=== PATIENT | female | born 1935 | race Caucasian/White ===

== ENCOUNTER 2022-01-23 03:40 | Inpatient (IN) | payer MEDICARE, SELFPAY ==
[2022-01-23] VITALS (17 sets, daily range): BP systolic 127–174; BP diastolic 74–126; PULSE 61–108; RESP 11–20; TEMP 36.4–36.5; O2SAT 90–96; BMI 44.8
--- NOTE | 2022-01-23 03:53 | EKG12_ITS ---
Test Reason : VISION PROB Blood Pressure : / mmHG Vent. Rate : 098 BPM Atrial Rate : 098 BPM P-R Int : 288 ms QRS Dur : 088 ms QT Int : 370 ms P-R-T Axes : 000 052 028 degrees QTc Int : 472 ms Atrial Flutter with variable block Otherwise normal ECG Confirmed by NANCY PETER, JER ([id number]), script editor MARCELLUS CARDENAS ([id number]) on 01/26/2022 11:31:21 AM Referred By: DEBBIE Confirmed By:JER CRUZ MD
--- NOTE | 2022-01-23 03:53 | CT_ITS ---
INDICATION: visual change EXAMINATION: CT BRAIN - CT Head or Brain W/O Contrast Injection TECHNIQUE: Multiple axial images were obtained of the head without intravenous contrast. A radiation dose optimization technique was used for this scan. IV Contrast dosage and agent: None. COMPARISON: FINDINGS: BRAIN PARENCHYMA: No intra- or extra-axial hemorrhage. Right superior cerebellar peduncle 1 cm hypodensity similar to CSF compatible prior lacunar infarct No intracranial mass or mass effect. Mild to moderate periventricular and subcortical white matter hypodense chronic small vessel white matter ischemic change. There is preservation of the [place]/white matter interface. Posterior fossa structures are unremarkable. Carotid and vertebral atherosclerosis. CSF SPACES: Moderate global cerebral volume loss. No hydrocephalus. Basal cisterns are patent. CALVARIUM, SKULL BASE, PARANASAL SINUSES AND MASTOID AIR CELLS: No acute osseous finding. Mild scattered paransal sinus mucoperisteal thickening. Mastoid air cells are clear. ORBITS: Both globes, extraocular muscles, optic nerves and retrobulbar fat appear unremarkable. ASPECTS Score for Acute Strokes: 10 CT/Brain/Head without Contrast IMPRESSION: No intracranial hemorrhage, mass, or focal mass effect. Senescent changes with likely chronic 1 cm right superior cerebellar peduncle infarct. Correlate with exam. MRI could further evaluate as clinically indicated. Electronically Signed: Juanito Mena MD at 5:15 EDT ,
--- NOTE | 2022-01-23 04:08 | EX.ED.DYSGE1 ---
HPI History of Present Illness Chief Complaint: Vision Prob Informant: patient and EMS Narrative Narrative: patient is an 86 year old female with history including hemorrhagic stroke about 7 years ago and hypertension presenting via EMS for tongue pain. Patient states about an hour prior to arrival she developed tongue pressure and pain underneath her tongue and sensation of swelling. She also notes that over the past 3 days or so she has been having flashes of light in her right eye as well as having visual hallucinations from her right eye. She states sometimes she will see a hand that is grabbing for her, dark shapes or even children. She notes she had vision changes when she had a hemorrhagic stroke about 7 years ago. Patient denies any falls or head injuries. She is on lisinopril. States she is never had tongue pain and swelling before like this. Denies eating any new foods. She does not think she is on any blood thinners. No other complaints at this time. Chart review on clinic think shows a patient is a history of small bowel obstruction, migraines, left occipital intracranial hemorrhage, type 2 diabetes mellitus, hypertension and hyperlipidemia as well. She does appear to be on lisinopril 10 mg. [facility] Medical History Brain bleed CVA (cerebral vascular accident) Diabetes HTN (hypertension) Hyperlipidemia Home Medications amlodipine 5 mg tablet 5 mg DAILY 01/23/22 [History Last Taken Unknown] aspirin 81 mg chewable tablet 81 mg PO DAILY 01/23/22 [History Last Taken Unknown] duloxetine 60 mg capsule,delayed release 60 mg PO DAILY 01/23/22 [History Last Taken Unknown] fluticasone propionate 50 mcg/actuation nasal spray,suspension 1 spray intranasal DAILY 01/23/22 [History Last Taken Unknown] lisinopril 10 mg tablet 10 mg PO DAILY 01/23/22 [History Last Taken Unknown] nitrofurantoin macrocrystal 100 mg capsule 100 mg DAILY 01/23/22 [History Last Taken Unknown] oxybutynin chloride 10 mg tablet,extended release 24 hr 10 mg PO DAILY 01/23/22 [History Last Taken Unknown] pravastatin 40 mg tablet 40 mg DAILY 01/23/22 [History Last Taken Unknown] sitagliptin 50 mg-metformin 500 mg tablet (Janumet) 1 tab BID 01/23/22 [History Last Taken Unknown] triamterene 37.5 mg-hydrochlorothiazide 25 mg capsule 1 cap DAILY 01/23/22 [History Last Taken Unknown] Allergy/AdvReac Type Severity Reaction Status Date / Time sulfamethoxazole AdvReac Rash Verified 01/23/22 05:02 [From Bactrim] tramadol AdvReac Nausea Verified 01/23/22 05:03 trimethoprim [From Bactrim] AdvReac Rash Verified 01/23/22 05:02 Surgical History History of hysterectomy Hx of appendectomy Social History Smoking Status: Never smoker ROS ROS ED Constitutional Constitutional ED: Denies chills or fever(s) Eyes Eyes: Reports change in vision and other Details: flashers in right eye ENT ENT ED: Reports other Details: tongue pain and swelling ; Denies rhinorrhea Cardiovascular Cardiovascular: Denies chest pain or palpitations Respiratory/Chest Respiratory/Chest: Denies cough Gastrointestinal Gastrointestinal: Denies abdominal pain, nausea or vomiting Musculoskeletal Musculoskeletal: Denies arthralgias or myalgias Integumentary Denies rash Neurologic Neurologic: Denies headache(s), paresthesias or weakness Psychiatric Psychiatric: Reports other Details: visual hallucinations EXAM Physical Exam Const Vital Signs: 01/23/22 03:41 01/23/22 06:45 01/23/22 05:00 Temperature 97.6 F L Temperature Source Temporal Pulse Rate 100 86 71 Respiratory Rate 11 L 15 16 Blood Pressure 142/89 H 130/88 H 150/78 H Blood Pressure Mean 106 102 102 Pulse Ox 93 92 93 Oxygen Delivery Method Room Air Room Air Room Air 01/23/22 04:00 01/23/22 07:00 01/23/22 07:21 Temperature 97.5 F L Temperature Source Temporal Pulse Rate 108 H 65 75 Respiratory Rate 16 20 H 17 Blood Pressure 174/89 H 135/96 H 135/96 H Blood Pressure Mean 117 109 109 Pulse Ox 92 93 92 Oxygen Delivery Method Room Air Room Air Room Air Positive well nourished and well developed General Appearance ED: well developed and NAD HEENT Reports moist mucous membranes HEENT Narrative: Patient has edema underneath the tongue with elevation of the sublingual mucosa consistent with angioedema. Normal phonation. No oropharyngeal angioedema appreciated at this time Eyes PERRL and EOMs intact bilaterally Eyes Narrative: No visual field cut Neck supple and no JVD Chest Wall inspection of chest normal and palpation of chest normal Resp normal respiratory effort and clear to auscultation bilaterally Cardio regular rate, regular rhythm and no murmurs GI normal to inspection, nondistended, normoactive bowel sounds, non-tender and non-distended Extremity normal to inspection General Extremety ED: Negative for edema or tenderness General Extremity: Negative for edema Neuro oriented x3, CN's II-XII intact bilaterally and no sensory deficits noted Neuro Narrative: NIH equals 0 Sensorium / Orientation: alert Motor Exam: strength 5/5 throughout; Negative for general weakness Psych mental status grossly normal Mood & Affect: Negative for depressed or anxious Skin no rashes or lesions noted and no wounds MDM MDM MDM Narrative Medical decision making narrative: Patient is evaluated for tongue discomfort. In addition she has had 4 to 5 days of visual hallucinations out of her right eye and flashers. She has a history of hemorrhagic stroke and is on lisinopril. Physical exam is consistent with mild angioedema. She does not have any immediate airway compromise. She is not confused and has no neurologic deficits on my exam. Will she does have chronic UTIs and is on chronic Macrodantin therapy for this. Her CBC shows a leukocytosis of 14.6 with neutrophil predominance. BMP largely unremarkable. Her eye since he troponin is elevated at 78 and then on repeat is 68. Patient does not have acute ischemic EKG changes. She denies any chest pain or shortness of breath at this time. Her straight cath urinalysis is positive for nitrates with 0-5 white blood cells and 3+ bacteria with no contamination. Patient is given a dose of TXA for presumed angioedema. She is given IV Rocephin for her leukocytosis and suspected urinary tract infection. Patient has a head CT does not show any acute process. She is given aspirin in the ER for her vision changes in case this is related to a stroke however her NIH is 0. Will be admitted for further evaluation of these things. Patient and daughter agreeable this plan of care. Patient remains hemodynamically stable in the emergency room. Lab Data Attestation: I reviewed the patient's lab results. Labs: Laboratory Results - last 24 hr 01/23/22 01/23/22 01/23/22 03:50 04:15 04:15 WBC 14.6 H RBC 5.46 H Hgb 15.7 H Hct 48.4 H MCV 88.6 MCH 28.8 MCHC 32.4 RDW Std Deviation 42.1 RDW Coeff of Alondra 13.0 Plt Count 381 MPV 8.8 Immature Gran % (Auto) 0.500 Neut % (Auto) 78.3 H Lymph % (Auto) 15.0 L [place] % (Auto) 5.4 Eos % (Auto) 0.4 Baso % (Auto) 0.4 Absolute Neuts (auto) 11.4 H Absolute Lymphs (auto) 2.18 Nucleated RBC % 0 PT 13.8 INR 1.1 APTT 25.7 Sodium Potassium Chloride Carbon Dioxide Anion Gap BUN Creatinine Estim Creat Clear Calc Est GFR (MDRD) Af Amer Est GFR (MDRD) Non-Af BUN/Creatinine Ratio Glucose Calcium Total Bilirubin AST ALT Alkaline Phosphatase Troponin I High Sens Total Protein Albumin Globulin Albumin/Globulin Ratio Urine Color Urine Clarity Urine pH Ur Specific [place] Urine Protein Urine Glucose (UA) Urine Ketones Urine Occult Blood Urine Nitrite Urine Bilirubin Urine Urobilinogen Ur Leukocyte Esterase Urine RBC Urine WBC Ur Squamous Epith Cells Urine Bacteria Urine Mucus POC Glucose 166 H 01/23/22 01/23/22 01/23/22 04:15 06:35 06:55 WBC RBC Hgb Hct MCV MCH MCHC RDW Std Deviation RDW Coeff of [place]ond[place] Plt Count MPV Immature Gran % (Auto) Neut % (Auto) Lymph % (Auto) [place] % (Auto) Eos % (Auto) Baso % (Auto) Absolute Neuts (auto) Absolute Lymphs (auto) Nucleated RBC % PT INR APTT Sodium 135 L Potassium 3.3 L Chloride 95 L Carbon Dioxide 30.0 Anion Gap 10 BUN 14 Creatinine 0.82 Estim Creat Clear Calc 38.95 Est GFR (MDRD) Af Amer 85 Est GFR (MDRD) Non-Af 70 BUN/Creatinine Ratio 17.1 Glucose 174 H Calcium 9.5 Total Bilirubin 0.60 AST 17 ALT 17 Alkaline Phosphatase 61 Troponin I High Sens 78 H 68 H Total Protein 7.8 Albumin 3.4 Globulin 4.4 H Albumin/Globulin Ratio 0.8 L Urine Color Yellow Urine Clarity Clear Urine pH 7.0 Ur Specific [place] 1.010 Urine Protein 15 H Urine Glucose (UA) Normal Urine Ketones Negative Urine Occult Blood 10 H Urine Nitrite Positive H Urine Bilirubin Negative Urine Urobilinogen Normal Ur Leukocyte Esterase 25 H Urine RBC 0-5 SEEN Urine WBC 0-5 SEEN Ur Squamous Epith Cells 0 SEEN Urine Bacteria 3+ Urine Mucus 0 SEEN POC Glucose Radiography Chest X-Ray - ED: 1 View, Read by ED Physician, Read by Radiologist and No Acute Disease Diagnostic Testing: Clinical Impression(s) from Imaging Studies Brain CT 01/23/22 03:53 IMPRESSION: No intracranial hemorrhage, mass, or focal mass effect. Senescent changes with likely chronic 1 cm right superior cerebellar peduncle infarct. Correlate with exam. MRI could further evaluate as clinically indicated. Electronically Signed: Juanito Mena MD at 5:15 EDT , Chest X-Ray 01/23/22 04:50 IMPRESSION: No radiographic evidence of acute cardiopulmonary disease. Electronically Signed: Juanito Mena MD at 5:08 EDT , Rhythm Strip Rhythm Strip: Sinus Rhythm Rate: 98 Ectopy: PVC(s) EKG Initial EKG: Attestation: I personally reviewed and interpreted this EKG as follows: Interpretation: Sinus Rhythm Comments: Normal sinus rhythm at a rate of 98 with first-degree AV block WA interval 288 Frequent PVCs Normal QRS and QTc Normal ST segments Discharge Plan Triage Chief Complaint: Vision Prob ED Provider: Toshia Hernandez Dx/Rx/DC Orders Prescriptions: No Action oxybutynin chloride 10 mg tablet extended release 24hr 10 mg PO DAILY Label Comments: take 1 tablet by mouth once daily pravastatin 40 mg tablet 40 mg DAILY Label Comments: Take 1 tablet by mouth every night as directed amlodipine 5 mg tablet 5 mg DAILY Label Comments: Take 1 tablet by mouth once a day as directed triamterene-hydrochlorothiazid 37.5-25 mg capsule 1 cap DAILY Label Comments: Take 1 capsule by mouth once a day nitrofurantoin macrocrystal 100 mg capsule 100 mg DAILY lisinopril 10 mg Tablet 10 mg PO DAILY aspirin 81 mg Tablet,Chewable 81 mg PO DAILY fluticasone propionate 50 mcg/actuation spray,suspension 1 spray INTRANASAL DAILY Rx Instructions: EACH NOSTRIL duloxetine 60 mg capsule,delayed release(DR/EC) 60 mg PO DAILY Label Comments: take 1 capsule by mouth once daily as directed Janumet 50-500 mg tablet 1 tab BID Label Comments: Take 1 tablet by mouth twice a day with meals Primary Care Provider: Radha Betancourt Referrals: [facility] Doctor,Out of [Non-Staff] - Disposition Disposition: Acute Care Hospital [facility]
[2022-01-23 04:10] LABS: Bedside Glucose 166 mg/dL (74-106)
[2022-01-23 04:24] LABS: Absolute Lymphocyte Count 2.18 X10^3/uL (0.83-4.51); Absolute Neutrophil Count 11.4 X10^3/uL (2.0-7.7); Basophil# 0.06 X10^3/uL; Basophil% 0.4 % (0-1); Eosinophil# 0.06 X10^3/uL; Eosinophils% 0.4 % (0-5); Hematocrit 48.4 % (37-47); Hemoglobin 15.7 g/dL (12.0-15.0); Lymphocyte # 2.18 X10^3/ul (0.83-4.51); Mean Corp Hgb Conc 32.4 g/dL (32-36); Mean Corpuscular Hgb 28.8 pg (27.0-32.0); Mean Corpuscular Volume 88.6 fL (81-99); Mean Platelet Vol. 8.8 fl (6.2-12.0); Monocyte# 0.78 X10^3/uL; Monocyte% 5.4 % (0-10); NRBC Flagged by Analyzer 0 % (0-5); Neutrophil # 11.41 X10^3/uL (2.7-7.7); Neutrophil % 78.3 % (47-70); Platelet Count 381 K/mm3 (150-450); RBC Distribution Width SD 42.1 fl (35.1-43.9); Red Blood Count 5.46 M/mm3 (4.2-5.4); White Blood Count 14.6 K/mm3 (4.4-11.0)
[2022-01-23] MEDS: 0.9% Normal Saline 1,000 ML 1000 ML IV (04:30)
[2022-01-23 04:33] LABS: International Normalized Ratio 1.1; Prothrombin Time (Protime)PT. 13.8 SECONDS (11.7-14.9)
[2022-01-23 04:34] LABS: Partial Thromboplast Time 25.7 Seconds (24.1-36.2)
[2022-01-23 04:43] LABS: ALB/GLOB Ratio 0.8 RATIO (0.9-2.4); AST(SGOT) 17 U/L (15-37); Alanine Aminotransfer ALT/SGPT 17 U/L (13-56); Albumin, Serum 3.4 g/dL (3.2-5.0); Alkaline Phosphatase 61 U/L (45-117); Anion Gap 10 (5-15); BUN 14 mg/dL (7-18); BUN/Creat Ratio 17.1 RATIO (10-20); Calcium,Total 9.5 mg/dL (8.5-10.1); Chloride 95 mmol/L (98-107); Creatinine, Serum 0.82 mg/dL (0.55-1.02); EST Glomerular Filtration Rate 70 mL/min (>60); Est Glom Filt Rate - Afr Amer 85 mL/min (>60); Estimated Creatinine Clearance 38.95 ml/min; Globulin 4.4 g/dL (2.2-4.2); Glucose 174 mg/dL (74-106); Potassium 3.3 mmol/L (3.5-5.1); Protein, Total 7.8 g/dL (6.4-8.2); Sodium Level 135 mmol/L (136-145); Troponin-I HS 78 pg/mL (3.0-54.0)
--- NOTE | 2022-01-23 04:50 | RAD_ITS ---
INDICATION: confusion EXAMINATION/TECHNIQUE: X-RAY - XR Chest 1 View COMPARISON: None. FINDINGS: LINES/DEVICES: None. LUNGS: No consolidation, edema or effusion. No pneumothorax. MEDIASTINUM AND CARDIOVASCULAR STRUCTURES: Borderline cardiomegaly. BONES AND SOFT TISSUES: Unremarkable. Lateral chest wall surgical changes. RAD/Chest 1 View (Portable) IMPRESSION: No radiographic evidence of acute cardiopulmonary disease. Electronically Signed: Juanito Mena MD at 5:08 EDT ,
[2022-01-23 06:41] LABS: Color, Urine Yellow (Yellow); Glucose, Dipstick Normal (Normal); Ketone-Dipstick Negative (Negative); Leukocyte Esterase-Dipstick 25 /ul (Negative); Mucous, Urine 0 SEEN /hpf (<or=2+); Nitrite-Dipstick Positive (Negative); Occult Blood-Urine 10 /ul (Negative); Protein-Dipstick 15 mg/dl (Negative); Squamous Epithelial Cells - UA 0 SEEN /hpf (5-10); Urine Bilirubin Dipstick Negative (Negative); Urine Clarity Clear (Clear); Urine Urobilinogen Normal (Normal)
[2022-01-23] MEDS: Aspirin 81 MG TAB.CHEW 324 MG PO (06:50)
[2022-01-23 07:04] LABS: Bacteria 3+ /hpf (None Seen); Red Blood Cells-Urine 0-5 SEEN /hpf (0-5); White Blood Cells 0-5 SEEN /hpf (0-5)
--- NOTE | 2022-01-23 07:22 | MRI_ITS ---
ACR Level 3 findings have been noted. An addendum which confirms receipt of the report will follow. HISTORY: CVA. TECHNIQUE: Multiplanar and multisequence MR images of the brain were obtained without contrast. 284 images. COMPARISON: CT same day. FINDINGS: BRAIN PARENCHYMA: Punctate foci of restricted diffusion in the right frontal lobe medially. Small focus of restricted diffusion in the left posterior periventricular region. Small foci of restricted diffusion in the right temporal lobe measuring up to 8 mm. Shine through artifact in the right middle cerebellar peduncle. Mild restricted diffusion in the left cerebellum. Advanced chronic white matter changes. No acute intracranial hemorrhage identified. CSF SPACES: Mild generalized volume loss. No significant midline shift or other mass effect.No extra-axial fluid collection. VASCULAR SYSTEM: Major intracranial flow voids are maintained. PARANASAL SINUSES AND MASTOID AIR CELLS: Right maxillary sinus mucous retention cyst. ORBITS: Bilateral lens resections. MRI/Brain without Contrast IMPRESSION: 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 Chronic involutional and white matter changes. Electronically Signed: Snehal Chu MD at 16:24 EDT ,
--- NOTE | 2022-01-23 07:22 | CT_ITS ---
We are attempting to reach an attending provider to discuss findings. An addendum with communication details will be sent when the communication is complete. INDICATION: Neuro deficit, acute, stroke suspected EXAMINATION: CTA CAROTIDS AND BRAIN - CTA Head and Neck W/ Contrast Injection (and W/O Contrast Images if performed) TECHNIQUE: Routine CTA of the head and neck was performed with post processing of the angiographic images for volumetric reconstructions. In addition, images were obtained of the [place] of [place]. Nascet criteria using the distal ICAs for comparison were used for evaluation of stenoses. 3D reconstructions were reviewed. A radiation dose optimization technique was used for this scan. IV Contrast dosage and agent: 100 mL [id number] COMPARISON: CT head on same day. FINDINGS: --NECK: AORTIC ARCH AND BRANCHES: Normal anatomy, patent. RIGHT CCA: No occlusion, significant stenosis or dissection. RIGHT ICA: No occlusion, significant stenosis or dissection. LEFT CCA: No occlusion, significant stenosis or dissection. LEFT ICA: Mild atherosclerosis at the carotid bifurcation. No occlusion, significant stenosis or dissection. RIGHT VERTEBRAL ARTERY: No occlusion, significant stenosis or dissection. LEFT VERTEBRAL ARTERY: No occlusion, significant stenosis or dissection. NECK SOFT TISSUES: Unremarkable. LUNG APICES: Clear. BONES: Unremarkable. --HEAD: Scattered paranasal sinus mucoperiosteal thickening. Mild dependent edema within the anterior inferior neck subcutaneous soft tissues without focal fluid collection or emphysema. --Anterior circulation: ICAs: Mild bilateral cavernous carotid atherosclerosis. No significant stenosis at the intracranial/visualized segments. ACAs: No significant stenosis at the visualized segments. ACOM: Present. MCAs: No significant stenosis at the visualized segments. --Posterior circulation: PCOMs: Intact bilaterally commander internal affairs: Focal 70% stenosis at the right proximal P2 segment. Remainder of the right and left posterior cerebral artery visible segments are patent without focal flow-limiting stenosis. BASILAR ARTERY: No significant stenosis. VERTEBRAL ARTERIES: No significant stenosis at the intradural/visualized segments. . No evidence of intracranial aneurysm or vascular malformation. 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 No other evidence of flow-limiting stenosis within the cervical or proximal intracranial vessels Electronically Signed: Juanito Mena MD at 8:04 EDT ,
[2022-01-23 07:25] LABS: Troponin-I HS 68 pg/mL (3.0-54.0)
--- NOTE | 2022-01-23 07:30 | PCM.HP.STD ---
HPI - General General Date of Admission: 01/23/22 Date of Service: 01/23/22 Chief Complaint: Visual disturbance and tongue swelling HPI Narrative YANNICK ANDERSON, is a 86 F with past medical history significant for essential hypertension, previous history of occipital hemorrhagic stroke who presented with visual disturbance and tongue swelling. Patient visual disturbance which she described as floating sensation as well as some hallucination started 2 to 3 days prior to her admission. She also did experience a sensation of tongue swelling on the morning of her admission necessitating patient presenting to the ED. Patient has history of recurrent UTI and is on Dr Smith time. In the emergency department patient did receive Tranexamic Acid for suspected allergic reaction to lisinopril. 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 Urinalysis obtained came back abnormal consistent with UTI started on Rocephin and admitted to a monitored bed for further management [facility] Medical History Brain bleed Cancer CVA (cerebral vascular accident) Diabetes HTN (hypertension) Hyperlipidemia Home Medications amlodipine 5 mg tablet 5 mg DAILY 01/23/22 [History Last Taken Unknown] aspirin 81 mg chewable tablet 81 mg PO DAILY 01/23/22 [History Last Taken Unknown] duloxetine 60 mg capsule,delayed release 60 mg PO DAILY 01/23/22 [History Last Taken Unknown] fluticasone propionate 50 mcg/actuation nasal spray,suspension 1 spray intranasal DAILY 01/23/22 [History Last Taken Unknown] lisinopril 10 mg tablet 10 mg PO DAILY 01/23/22 [History Last Taken Unknown] nitrofurantoin macrocrystal 100 mg capsule 100 mg DAILY 01/23/22 [History Last Taken Unknown] oxybutynin chloride 10 mg tablet,extended release 24 hr 10 mg PO DAILY 01/23/22 [History Last Taken Unknown] pravastatin 40 mg tablet 40 mg DAILY 01/23/22 [History Last Taken Unknown] sitagliptin 50 mg-metformin 500 mg tablet (Janumet) 1 tab BID 01/23/22 [History Last Taken Unknown] triamterene 37.5 mg-hydrochlorothiazide 25 mg capsule 1 cap DAILY 01/23/22 [History Last Taken Unknown] Allergy/AdvReac Type Severity Reaction Status Date / Time sulfamethoxazole AdvReac Rash Verified 01/23/22 05:02 [From Bactrim] tramadol AdvReac Nausea Verified 01/23/22 05:03 trimethoprim [From Bactrim] AdvReac Rash Verified 01/23/22 05:02 Family History (Updated 01/23/22 @ 10:[address] Frank Guerra MD) Mother CVA (cerebral vascular accident) Surgical History History of hysterectomy Hx of appendectomy Social History housing: house number of children: 3 Smoking Status: Never smoker ROS ROS Narrative GENERAL: denies fever, chills, night sweats, HEENT: Visual hallucination, tongue swelling RESPIRATORY: denies cough, sputum production, CARDIAC: denies chest pain, palpitations, orthopnea, PND GASTROINTESTINAL: denies abdominal pain, nausea, vomiting, melena, GENITOURINARY: denies dysuria, urgency, frequency, heamaturia EXTREMITY: denies swelling MUSCULOSKELETAL: denies current joint pain or tenderness NEUROLOGIC: denies focal numbness, weakness, tingling HEMATOLOGIC: denies easy bruising and/or hemorrhage INTEGUMENT: denies rashes PSYCHIATRIC: denies suicidal or homicidal ideation Vital Signs Vital Signs Vital Signs: 01/23/22 03:41 01/23/22 06:45 01/23/22 05:00 Temperature 97.6 F L Temperature Source Temporal Pulse Rate 100 86 71 Respiratory Rate 11 L 15 16 Blood Pressure 142/89 H 130/88 H 150/78 H Blood Pressure Mean 106 102 102 Pulse Ox 93 92 93 Oxygen Delivery Method Room Air Room Air Room Air 01/23/22 04:00 01/23/22 07:00 01/23/22 07:21 Temperature 97.5 F L Temperature Source Temporal Pulse Rate 108 H 65 75 Respiratory Rate 16 20 H 17 Blood Pressure 174/89 H 135/96 H 135/96 H Blood Pressure Mean 117 109 109 Pulse Ox 92 93 92 Oxygen Delivery Method Room Air Room Air Room Air Weight Weight: 111.1 kg Body Mass Index (BMI) 44.8 Physical Exam Narrative GENERAL: cooperative HEENT: Atraumatic; no tongue swelling appreciated EYES; Anicteric, Normal Conjunctiva NECK; supple, normal thyroid, RESPIRATORY: Diminished to auscultation CARDIOVASCULAR: Regular S1 S2, GI: soft, normoactive bowel sounds, : No Renal angle tenderness; EXTREMITIES: No edema, no clubbing, MUSCULOSKELETAL: no muscle wasting NEURO: Awake; no lateralizing signs. SKIN: No Rash PSYCH; Flat affect Results Lab / Micro Data Result Diagrams: 01/23/22 04:15 01/23/22 04:15 Labs: Laboratory Results - last 24 hr 01/23/22 03:50: POC Glucose 166 H 01/23/22 04:15: WBC 14.6 H, RBC 5.46 H, Hgb 15.7 H, Hct 48.4 H, MCV 88.6, MCH 28.8, MCHC 32.4, RDW Std Deviation 42.1, RDW Coeff of Alondra 13.0, Plt Count 381, MPV 8.8, Immature Gran % (Auto) 0.500, Neut % (Auto) 78.3 H, Lymph % (Auto) 15.0 L, [place] % (Auto) 5.4, Eos % (Auto) 0.4, Baso % (Auto) 0.4, Absolute Neuts (auto) 11.4 H, Absolute Lymphs (auto) 2.18, Nucleated RBC % 0 01/23/22 04:15: PT 13.8, INR 1.1, APTT 25.7 01/23/22 04:15: Sodium 135 L, Potassium 3.3 L, Chloride 95 L, Carbon Dioxide 30.0, Anion Gap 10, BUN 14, Creatinine 0.82, Estim Creat Clear Calc 38.95, Est GFR (MDRD) Af Amer 85, Est GFR (MDRD) Non-Af 70, BUN/Creatinine Ratio 17.1, Glucose 174 H, Calcium 9.5, Total Bilirubin 0.60, AST 17, ALT 17, Alkaline Phosphatase 61, Troponin I High Sens 78 H, Total Protein 7.8, Albumin 3.4, Globulin 4.4 H, Albumin/Globulin Ratio 0.8 L 01/23/22 06:35: Urine Color Yellow, Urine Clarity Clear, Urine pH 7.0, Ur Specific [place] 1.010, Urine Protein 15 H, Urine Glucose (UA) Normal, Urine Ketones Negative, Urine Occult Blood 10 H, Urine Nitrite Positive H, Urine Bilirubin Negative, Urine Urobilinogen Normal, Ur Leukocyte Esterase 25 H, Urine RBC 0-5 SEEN, Urine WBC 0-5 SEEN, Ur Squamous Epith Cells 0 SEEN, Urine Bacteria 3+, Urine Mucus 0 SEEN 01/23/22 06:55: Troponin I High Sens 68 H Rhythm Strip Rhythm Strip: Sinus Rhythm Rate: 98 Ectopy: PVC(s) Radiology Impression Brain CT 01/23/22 03:53 IMPRESSION: No intracranial hemorrhage, mass, or focal mass effect. Senescent changes with likely chronic 1 cm right superior cerebellar peduncle infarct. Correlate with exam. MRI could further evaluate as clinically indicated. Electronically Signed: Juanito Mena MD at 5:15 EDT , Chest X-Ray 01/23/22 04:50 IMPRESSION: No radiographic evidence of acute cardiopulmonary disease. Electronically Signed: Juanito Mena MD at 5:08 EDT , Assessment & Plan Assessment/Plan (1) Angioedema: (2) Acute cystitis: PLAN: Plan Patient is an 86-year-old lady presented with multiple complaints including sensation of tongue swelling, as well as right visual disturbance. Admitted to monitored bed for further management 1. Intermittent visual disturbance ? Patient has been admitted to a monitored bed to rule out acute CVA. As part of patient's evaluation patient was placed on continuous telemetry monitoring, every 4 neurochecks 2D echo and ordered MRI of the brain to rule out CVA. 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 Patient is already on antiplatelet therapy with pravastatin did continue. Also on antiplatelet therapy with aspirin did continue 2. Suspected angioedema ? Patient is on lisinopril, this was discontinued patient did receive Tranexamic Acid in the ED 3. Acute cystitis ? Patient has history of recurrent UTIs patient is on nitrofurantoin held on admission started on Rocephin cultures sent 4. Hypertension - Blood pressure controlled, home medications assess for lisinopril continued with dose adjustment as needed 5. Paroxysmal A. fib ? Patient was being monitored continuously on telemetry was found to have intermittent irregular heartbeat. 12-lead EKG ordered in addition to echo with consultation placed to cardiology. Patient remains at significant risk for embolic CVA given her high Enoc vas 2 score of 5 6. Dyslipidemia -Patient is on statin therapy, continued at home dose 7. Diabetes mellitus type II -patient's oral hypoglycemics held. Placed on long acting insulin, Accu-Cheks a.c. and at bedtime and covered with sliding scale insulin 8. Class III obesity with BMI of 43.7 ? Weight loss advised 9. DVT prophylaxis ? On Lovenox Advance planning; did discuss with the patient and family regarding advanced directives as well as CODE STATUS. Did explain the various scenarios involved ( FULL CODE, DNR CCA, DNR CCA with no intubation, and DNR CC and what each meant) patient elected to be DNR CCA no intubation. Order was placed. Time spent on discussion 18 minutes. Charges/Coding Visit Charges OBSV E&M: 69693 Initial observation care L3 Procedures Hospitalists Procedures: 73382 Advncd Care Plan 30 Min
[2022-01-23] MEDS: Ceftriaxone 1 GM/50 ML BAG IV (07:40)
--- NOTE | 2022-01-23 08:27 | ECHOD_ITS ---
Reason For Study: TIA/CVA Procedure This was a 2D Doppler, Color Flow transthoracic echocardiogram. Technically difficult study due to uncooperative patient and body habitus. Definity declined by patient. Exam performed portable in patient room. Left Ventricle Normal LV size. Left ventricular systolic function is normal. The estimated ejection fraction is 60 %. No regional wall motion abnormalities noted. Right Ventricle Normal RV size. Normal systolic function. Atria The left atrium is mildly enlarged. The right atrium is mildly enlarged. Bubble contrast study negative for right to left interatrial shunt. Mitral Valve Normal mitral valve. Tricuspid Valve Normal tricuspid valve. Mild (1+) tricuspid valve insufficiency. Pulmonary artery systolic pressure is 50 mmHg. Aortic Valve Normal aortic valve. Trisinus/trileaflet aortic valve. Pulmonic Valve The pulmonic valve is not well visualized. Great Vessels Normal aortic root. The pulmonary artery is normal size. Normal inferior vena cava. Pericardium/Pleural No pericardial effusion. Medication Performed a rapid injection of agitated mix of 9 cc saline and 1cc air to assess for atrial septal defect. MMode/2D Measurements & Calculations RVDd: 3.7 cm LAV(MOD-sp4): 58.4 ml LA A4 area: 22.6 cm2 RA A4 area: 24.1 cm2 Doppler Measurements & Calculations MV E max jorge: 164.4 cm/sec Ao V2 max: 154.9 cm/sec LV V1 max: 116.8 cm/sec Ao max P.7 mmHg LV V1 max P.5 mmHg Ao V2 mean: 109.6 cm/sec LV V1 mean P.3 mmHg Ao mean P.4 mmHg LV V1 mean: 86.7 cm/sec Ao V2 VTI: 32.1 cm LV V1 VTI: 27.4 cm PA V2 max: 93.9 cm/sec TR max jorge: 331.5 cm/sec TR max P.0 mmHg ECHO/Echo Complete Interpretation Summary Normal LV size. Left ventricular systolic function is normal. The estimated ejection fraction is 60 %. The left atrium is mildly enlarged. The right atrium is mildly enlarged. Bubble contrast study negative for right to left interatrial shunt. Ordering Physician: Frank Guerra Performed By: Arlene Mascorro RCS
[2022-01-23] MEDS: KCL 20MEQ in 0.9% NS 20 MEQ/1,000 ML IV.SOLN. 100 MEQ IV ×2 (10:22→23:24)
[2022-01-23 10:29] LABS: Troponin-I HS 68 pg/mL (3.0-54.0)
--- NOTE | 2022-01-23 10:33 | EKG12_ITS ---
Test Reason : Blood Pressure : / mmHG Vent. Rate : 077 BPM Atrial Rate : 100 BPM P-R Int : 000 ms QRS Dur : 078 ms QT Int : 396 ms P-R-T Axes : 092 048 023 degrees QTc Int : 448 ms Sinus rhythm with 2nd degree A-V block (Mobitz I) with occasional Premature ventricular complexes Cannot rule out Inferior infarct , age undetermined Abnormal ECG When compared with ECG of 23-JAN-2022 04:06, MANUAL COMPARISON REQUIRED, DATA IS UNCONFIRMED Confirmed by NANCY PETER, JER ([id number]), editorial clerk MARCELLUS CARDENAS ([id number]) on 01/23/2022 2:25:14 PM Referred By: GIGI Confirmed By:JER CRUZ MD
[2022-01-23] MEDS: LORazepam 1 MG Tablet PO (11:29)
[2022-01-23 12:15] LABS: Bedside Glucose 221 mg/dL (74-106)
[2022-01-23] MEDS: Insulin Lispro 100 UNIT/ML INSULN.PEN SC ×3 (12:31→21:54)
--- NOTE | 2022-01-23 13:01 | EKG12_ITS ---
Test Reason : Blood Pressure : / mmHG Vent. Rate : 071 BPM Atrial Rate : 076 BPM P-R Int : 000 ms QRS Dur : 072 ms QT Int : 420 ms P-R-T Axes : 000 038 054 degrees QTc Int : 456 ms Atrial Flutter with variable block Otherwise normal ECG When compared with ECG of 23-JAN-2022 10:53, MANUAL COMPARISON REQUIRED, DATA IS UNCONFIRMED Confirmed by NANCY PETER, JER ([id number]), graphic editor MARCELLUS CARDENAS ([id number]) on 01/27/2022 9:20:09 AM Referred By: NANCY Confirmed By:JER CRUZ MD
--- NOTE | 2022-01-23 15:16 | NURSING ---
1445 Attempted to administer patient's medications multiple times. Pt. states does not want to take any medications until speaks with daughter. Pt. attempted to contact daughter via phone unsuccessfully. Educated on risk of refusing medications. Voices understanding but continues to refuse.
--- NOTE | 2022-01-23 16:43 | TELEMED_ITS ---
[facility] Tele[facility] has confirmed receipt of a request for visit. This document confirms receipt of the order initiating the consult. To find the results of the consultation, please view the patient's reports for the scanned Telemed Consult.
--- NOTE | 2022-01-23 17:42 | CON.PCM.CA_ITS ---
Assessment & Plan Assessment/Plan (1) Paroxysmal atrial fibrillation: PLAN: Patient was noted to have asymptomatic paroxysmal atrial fibrillation. Her ventricular response rate appears to be controlled. She does have preserved left ventricular systolic function. At this time based on her recent cerebrovascular event I am hesitant to anticoagulate her long-term until we do have some more information from the neurologist. Would recommend low-dose beta-marcy at this time. Thank you for allowing me to participate in the care of your patient. Please don't hesitate to call if any issues arise. HPI Consult Data Date of Consult: 01/23/22 HPI Narrative HPI Narrative: YANNICK ANDERSON, is a 86 F who presents with past medical history significant for essential hypertension, previous history of occipital hemorrhagic stroke who presented with visual disturbance and tongue swelling.? Patient visual disturbance which she described as floating sensation as well as some hallucination started 2 to 3 days prior to her admission.? She also did experience a sensation of tongue swelling on the morning of her admission necessitating patient presenting to the ED.? In the emergency department patient did receive Tranexamic Acid? for suspected allergic reaction to lisinopril.? 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 Patient was admitted to the telemetry care unit and while on admission there had an irregular rhythm which was suspicious for atrial fibrillation. Cardiology was called for further evaluation and management. She denies any palpitations no neck arm or jaw discomfort suggest angina no dizziness or diaphoresis no near syncope or syncope. [facility] Medical History (Updated 01/23/22 @ 17:[address] Preet Dueñas MD) Brain bleed Cancer Colon abnormality CVA (cerebral vascular accident) Diabetes HTN (hypertension) Hyperlipidemia Home Medications amlodipine 5 mg tablet 5 mg DAILY Blood pressure 01/23/22 [History Last Taken 01/22/22] duloxetine 60 mg capsule,delayed release 60 mg PO DAILY mood 01/23/22 [History Last Taken 01/22/22] fluticasone propionate 50 mcg/actuation nasal spray,suspension 1 spray intranasal DAILY PRN Allergic Symptoms 01/23/22 [History Last Taken Unknown] lisinopril 10 mg tablet 10 mg PO DAILY blood pressure 01/23/22 [History Last Taken 01/22/22] nitrofurantoin macrocrystal 100 mg capsule 100 mg DAILY prevent UTI 01/23/22 [H istory Last Taken 01/22/22] oxybutynin chloride 10 mg tablet,extended release 24 hr 10 mg PO DAILY bladder 01/23/22 [History Last Taken 01/22/22] pravastatin 40 mg tablet 40 mg DAILY cholesterol 01/23/22 [History Last Taken 01/22/22] sitagliptin 50 mg-metformin 500 mg tablet (Mayumet) 1 tab BID blood sugar 01/23/22 [History Last Taken 01/22/22] triamterene 37.5 mg-hydrochlorothiazide 25 mg capsule 1 cap DAILY diuretic 01/23/22 [History Last Taken 01/22/22] Allergy/AdvReac Type Severity Reaction Status Date / Time sulfamethoxazole AdvReac Rash Verified 01/23/22 05:02 [From Bactrim] tramadol AdvReac Nausea Verified 01/23/22 05:03 trimethoprim [From Bactrim] AdvReac Rash Verified 01/23/22 05:02 Family History (Updated 01/23/22 @ 10:[address] Frank Guerra MD) Mother CVA (cerebral vascular accident) Surgical History (Updated 01/23/22 @ 14:59 by Lacy Fabian) H/O mastectomy History of hysterectomy Hx of appendectomy Social History housing: house number of children: 3 Smoking Status: Never smoker ROS Constitutional Constitutional: Denies fever(s) or weight loss Eyes Eyes: Reports systems reviewed and no addt'l complaints, except as documented ENT HEENT: Reports systems reviewed and no addt'l complaints, except as documented Cardiovascular Cardiovascular: Reports palpitations; Denies chest pain at rest, chest pain with activity, dyspnea at rest, dyspnea on exertion, edema or paroxysmal nocturnal dyspnea Respiratory/Chest Respiratory/Chest: Denies dyspnea on exertion, productive cough, shortness of breath at rest or shortness of breath with exertion Gastrointestinal Gastrointestinal: Denies change in bowel habits, nausea, vomiting or weight changes Genitourinary Genitourinary: Denies difficulty urinating Musculoskeletal Musculoskeletal: Denies joint stiffness or muscle weakness Integumentary Integumentary: Denies lesions Neurologic Neurologic: Denies dizziness or syncope Psychiatric Psychiatric: Denies anxiety Endocrine Endocrinology: Denies excessive sweating or fatigue Hematologic/Lymphatic Hematologic/Lymphatic: Denies anemia Allergic/Immunologic Allergic/Immunologic: Denies seasonal rhinorrhea Risk Stratification Risk Stratification Applicable: No Objective Data Vital Signs: Vital Signs Temp Pulse Resp BP Pulse Ox O2 Del Method 97.5 F L 85 16 136/76 H 90 Room Air 01/23/22 13:00 01/23/22 15:38 01/23/22 15:38 01/23/22 15:38 01/23/22 15:38 01/23/22 15:38 Oxygen Delivery Method Room Air Weight: 238 lb 12.17 oz Body Mass Index (BMI) 44.8 Intake & Output: Intake and Output for Last 24 Hours 01/21/22 01/22/22 01/23/22 23:59 23:59 23:59 Intake Total 1523.33 / 1523.33 Balance 1523.33 / 1523.33 Lab / Micro Data Result Diagrams: 01/23/22 04:15 01/23/22 04:15 Labs: Laboratory Results - last 24 hr 01/23/22 03:50: POC Glucose 166 H 01/23/22 04:15: WBC 14.6 H, RBC 5.46 H, Hgb 15.7 H, Hct 48.4 H, MCV 88.6, MCH 28.8, MCHC 32.4, RDW Std Deviation 42.1, RDW Coeff of Alondra 13.0, Plt Count 381, MPV 8.8, Immature Gran % (Auto) 0.500, Neut % (Auto) 78.3 H, Lymph % (Auto) 15.0 L, [place] % (Auto) 5.4, Eos % (Auto) 0.4, Baso % (Auto) 0.4, Absolute Neuts (auto) 11.4 H, Absolute Lymphs (auto) 2.18, Nucleated RBC % 0 01/23/22 04:15: PT 13.8, INR 1.1, APTT 25.7 01/23/22 04:15: Sodium 135 L, Potassium 3.3 L, Chloride 95 L, Carbon Dioxide 30.0, Anion Gap 10, BUN 14, Creatinine 0.82, Estim Creat Clear Calc 38.95, Est GFR (MDRD) Af Amer 85, Est GFR (MDRD) Non-Af 70, BUN/Creatinine Ratio 17.1, Glucose 174 H, Calcium 9.5, Total Bilirubin 0.60, AST 17, ALT 17, Alkaline Phosphatase 61, Troponin I High Sens 78 H, Total Protein 7.8, Albumin 3.4, Globulin 4.4 H, Albumin/Globulin Ratio 0.8 L 01/23/22 06:35: Urine Color Yellow, Urine Clarity Clear, Urine pH 7.0, Ur Specific [place] 1.010, Urine Protein 15 H, Urine Glucose (UA) Normal, Urine Ketones Negative, Urine Occult Blood 10 H, Urine Nitrite Positive H, Urine Bilirubin Negative, Urine Urobilinogen Normal, Ur Leukocyte Esterase 25 H, Urine RBC 0-5 SEEN, Urine WBC 0-5 SEEN, Ur Squamous Epith Cells 0 SEEN, Urine Bacteria 3+, Urine Mucus 0 SEEN 01/23/22 06:55: Troponin I High Sens 68 H 01/23/22 10:00: Troponin I High Sens 68 H 01/23/22 11:55: POC Glucose 221 H Rhythm Strip Rhythm Strip: Sinus Rhythm Rate: 98 Ectopy: PVC(s) Cardiology Labs/Tests 01/23/22 04:15: WBC 14.6 H, RBC 5.46 H, Hgb 15.7 H, Hct 48.4 H, MCV 88.6, MCH 28.8, MCHC 32.4, Plt Count 381, MPV 8.8, Immature Gran % (Auto) 0.500, Neut % (Auto) 78.3 H, Lymph % (Auto) 15.0 L, [place] % (Auto) 5.4, Eos % (Auto) 0.4, Baso % (Auto) 0.4, Absolute Neuts (auto) 11.4 H, Nucleated RBC % 0 01/23/22 04:15: PT 13.8, INR 1.1, APTT 25.7 01/23/22 04:15: Sodium 135 L, Potassium 3.3 L, Chloride 95 L, Carbon Dioxide 30.0, Anion Gap 10, BUN 14, Creatinine 0.82, Est GFR (MDRD) Af Amer 85, Est GFR (MDRD) Non-Af 70, BUN/Creatinine Ratio 17.1, Glucose 174 H, Calcium 9.5, Total Bilirubin 0.60 01/23/22 06:35: Urine Color Yellow, Urine Clarity Clear, Urine pH 7.0, Ur Specific [place] 1.010, Urine Protein 15 H, Urine Glucose (UA) Normal, Urine Ketones Negative, Urine Occult Blood 10 H, Urine Nitrite Positive H, Urine Bilirubin Negative, Urine Urobilinogen Normal, Ur Leukocyte Esterase 25 H, Urine RBC 0-5 SEEN, Urine WBC 0-5 SEEN Rhythm: EKG: ECHO: Stress Test: Cardiac Cath: PCI: CT Surgery: Holter monitor: EPS: PPM: CXR: Chest CT Scan: Radiography Diagnostic Testing: Radiology Impression Brain CT 01/23/22 03:53 IMPRESSION: No intracranial hemorrhage, mass, or focal mass effect. Senescent changes with likely chronic 1 cm right superior cerebellar peduncle infarct. Correlate with exam. MRI could further evaluate as clinically indicated. Electronically Signed: Juanito Mena MD at 5:15 EDT , Chest X-Ray 01/23/22 04:50 IMPRESSION: No radiographic evidence of acute cardiopulmonary disease. Electronically Signed: Juanito Mena MD at 5:08 EDT , Brain MRI 01/23/22 07:22 IMPRESSION: 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 Chronic involutional and white matter changes. 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 Chronic involutional and white matter changes. N.B. : Jessica St RN, confirmed on 01/23/2022 16:39:49 (ET) that the healthcare facility has received the radiology report. 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 No other evidence of flow-limiting stenosis within the cervical or proximal intracranial vessels N.B. : The above Results were Read Back by Juanito Mena MD to , AA, and understanding confirmed on 01/23/2022 08:05:59 (ET). Electronically Signed: Juanito Mena MD at 8:04 EDT , Echocardiogram 01/23/22 08:27 Interpretation Summary Normal LV size. Left ventricular systolic function is normal. The estimated ejection fraction is 60 %. The left atrium is mildly enlarged. The right atrium is mildly enlarged. Bubble contrast study negative for right to left interatrial shunt. Ordering Physician: Frank Guerra Performed By: Arlene Mascorro RCS
[2022-01-23 17:46] LABS: Bedside Glucose 195 mg/dL (74-106)
--- NOTE | 2022-01-23 20:00 | CM.ED ---
[place] Note SW met with patient to discuss discharge plans. SW asked patient if she had a desire to go to SNF for discharge. She indicated that she had been at SNF in [facility] and it had gone well and she might be interested in returning. Patient could not remember the name of the SNF. SW will bring patient the list of SNF for [facility] with patient tomorrow and she can review the list for her previous SNF placement. Plan: [facility]
[2022-01-23] MEDS: Nystatin Powder 15gm Bottle 1 APPLIC TOPICAL (21:55)
[2022-01-23 22:15] LABS: Bedside Glucose 151 mg/dL (74-106)
[2022-01-24] VITALS (14 sets, daily range): BP systolic 127–139; BP diastolic 64–96; PULSE 70–113; RESP 16–20; TEMP 35.6–36.9; O2SAT 92–97; BMI 44.8
--- NOTE | 2022-01-24 02:49 | NURSING ---
Unable to get IV access on pt after this RN attempted 3 times and RN supervisor malted milk tried [address] Blum. No new orders at this time.
[2022-01-24] MEDS: Insulin Lispro 100 UNIT/ML INSULN.PEN SC ×3 (06:45→21:26)
[2022-01-24 07:05] LABS: Bedside Glucose 151 mg/dL (74-106)
--- NOTE | 2022-01-24 07:30 | PN.HOSP_ITS ---
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 Chronic involutional and white matter changes. Patient was also found to have A. fib on the monitor. Did discuss findings of MRI as well as her A. fib and implications for treatment. Discussed the pros and cons of systemic anticoagulation given her remote history of cerebellar hemorrhage. Patient opted to go with systemic anticoagulation. Subsequently started patient on Eliquis 2.5 mg twice daily. Objective Data Objective Data Vital Signs: Vital Signs Temp Pulse Resp BP Pulse Ox O2 Del Method 98.1 F 71 16 128/69 H 97 Room Air 01/24/22 06:00 01/24/22 06:00 01/24/22 06:00 01/24/22 06:00 01/24/22 06:00 01/24/22 06:00 Oxygen Delivery Method Room Air Weight: 108.3 kg Body Mass Index (BMI) 44.8 Intake & Output: Intake and Output for Last 24 Hours 01/22/22 01/23/22 01/24/22 23:59 23:59 23:59 Intake Total 2601.67 / 2601.67 Output Total 150 / 150 400 / 400 Balance 2451.67 / 2451.67 -400 / -400 Lab / Micro Data Result Diagrams: 01/23/22 04:15 01/23/22 04:15 Labs: Laboratory Results - last 24 hr 01/23/22 10:00: Troponin I High Sens 68 H 01/23/22 11:55: POC Glucose 221 H 01/23/22 17:17: POC Glucose 195 H 01/23/22 21:52: POC Glucose 151 H 01/24/22 06:44: POC Glucose 151 H Radiography Diagnostic Testing: Radiology Impression Brain MRI 01/23/22 07:22 IMPRESSION: 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 Chronic involutional and white matter changes. 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 Chronic involutional and white matter changes. N.B. : Jessica St RN, confirmed on 01/23/2022 16:39:49 (ET) that the healthcare facility has received the radiology report. 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 No other evidence of flow-limiting stenosis within the cervical or proximal intracranial vessels N.B. : The above Results were Read Back by Juanito Mena MD to , AA, and understanding confirmed on 01/23/2022 08:05:59 (ET). Electronically Signed: Juanito Mena MD at 8:04 EDT , Echocardiogram 01/23/22 08:27 Interpretation Summary Normal LV size. Left ventricular systolic function is normal. The estimated ejection fraction is 60 %. The left atrium is mildly enlarged. The right atrium is mildly enlarged. Bubble contrast study negative for right to left interatrial shunt. Ordering Physician: Frank Guerra Performed By: Arlene Mascorro RCS Rhythm Strip Rhythm Strip: Sinus Rhythm Rate: 98 Ectopy: PVC(s) Physical Exam Narrative GENERAL: cooperative HEENT: Atraumatic; no tongue swelling appreciated EYES; Anicteric, Normal Conjunctiva NECK; supple, normal thyroid, RESPIRATORY: Diminished to auscultation CARDIOVASCULAR: Regular S1 S2, GI: soft, normoactive bowel sounds, : No Renal angle tenderness; EXTREMITIES: No edema, no clubbing, MUSCULOSKELETAL: no muscle wasting NEURO: Awake; no lateralizing signs. SKIN: No Rash PSYCH; Flat affect Assessment & Plan Assessment/Plan (1) Angioedema: (2) Acute cystitis: PLAN: Plan Patient is an 86-year-old lady presented with multiple complaints including sensation of tongue swelling, as well as right visual disturbance. Admitted to monitored bed for further management 1. Acute embolic CVA ? Patient presented with intermittent visual disturbance As part of patient's evaluation patient was placed on continuous telemetry monitoring, every 4 neurochecks 2D echo and ordered MRI of the brain to rule out CVA. 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 Patient is already on antiplatelet therapy with pravastatin did continue. 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 Chronic involutional and white matter changes. Patient was also found to have A. fib on the monitor. Did discuss findings of MRI as well as her A. fib and implications for treatment. Discussed the pros and cons of systemic anticoagulation given her remote history of cerebellar hemorrhage. Patient opted to go with systemic an ticoagulation. Subsequently started patient on Eliquis 2.5 mg twice daily. 2. Suspected angioedema ? Patient is on lisinopril, this was discontinued patient did receive Tranexamic Acid in the ED ? 01/24/2022 lisinopril discontinued no recurrence of symptoms 3. Acute cystitis ? Patient has history of recurrent UTIs patient is on nitrofurantoin held on admission started on Rocephin cultures sent ? 01/24/2022; urine cultures pending 4. Hypertension - Blood pressure controlled, home medications assess for lisinopril continued with dose adjustment as needed 5. Paroxysmal A. fib ? Patient was being monitored continuously on telemetry was found to have intermittent irregular heartbeat. 12-lead EKG ordered in addition to echo with consultation placed to cardiology. 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 Chronic involutional and white matter changes. Patient was also found to have A. fib on the monitor. Did discuss findings of MRI as well as her A. fib and implications for treatment. Discussed the pros and cons of systemic anticoagulation given her remote history of cerebellar hemorrhage. Patient opted to go with systemic anticoagulation. Subsequently started patient on Eliquis 2.5 mg twice daily. 6. Dyslipidemia -Patient is on statin therapy, continued at home dose 7. Diabetes mellitus type II -patient's oral hypoglycemics held. Placed on long acting insulin, Accu-Cheks a.c. and at bedtime and covered with sliding scale insulin 8. Class III obesity with BMI of 43.7 ? Weight loss advised 9. DVT prophylaxis ? Elisimon Charges/Coding Visit Charges Inpatient E&M: 98507 [facility] Hosp L3
[2022-01-24 09:13] LABS: Absolute Lymphocyte Count 2.07 X10^3/uL (0.83-4.51); Absolute Neutrophil Count 7.1 X10^3/uL (2.0-7.7); Basophil# 0.04 X10^3/uL; Basophil% 0.4 % (0-1); Eosinophil# 0.14 X10^3/uL; Eosinophils% 1.4 % (0-5); Hematocrit 41.3 % (37-47); Hemoglobin 13.5 g/dL (12.0-15.0); Lymphocyte # 2.07 X10^3/ul (0.83-4.51); Lymphocyte % 20.7 % (19-41); Mean Corp Hgb Conc 32.7 g/dL (32-36); Mean Corpuscular Hgb 28.8 pg (27.0-32.0); Mean Corpuscular Volume 88.2 fL (81-99); Monocyte# 0.63 X10^3/uL; Monocyte% 6.3 % (0-10); NRBC Flagged by Analyzer 0 % (0-5); Neutrophil # 7.08 X10^3/uL (2.7-7.7); Neutrophil % 70.7 % (47-70); Platelet Count 322 K/mm3 (150-450); RBC Distribution Width CV 13.2 % (11.6-14.6); RBC Distribution Width SD 42.5 fl (35.1-43.9); Red Blood Count 4.68 M/mm3 (4.2-5.4)
[2022-01-24 09:30] LABS: Anion Gap 8 (5-15); BUN 7 mg/dL (7-18); BUN/Creat Ratio 13.5 RATIO (10-20); Calcium,Total 8.9 mg/dL (8.5-10.1); Chloride 100 mmol/L (98-107); Cholesterol 118 mg/dL (200); Creatinine, Serum 0.52 mg/dL (0.55-1.02); EST Glomerular Filtration Rate 119 mL/min (>60); Est Glom Filt Rate - Afr Amer 144 mL/min (>60); Estimated Creatinine Clearance 31.94 ml/min; Glucose 142 mg/dL (74-106); High Density Lipoprotein 52 mg/dL; Magnesium 1.7 mg/dL (1.6-2.6); Phosphorus 2.8 mg/dL (2.5-4.9); Potassium 3.3 mmol/L (3.5-5.1); Sodium Level 138 mmol/L (136-145); Triglycerides 148 mg/dL; Very Low Density Lipoprotein 30 mg/dL (5-40)
[2022-01-24] MEDS: Tolterodine Tartrate 2 MG CAP.SA PO (09:44)
[2022-01-24] MEDS: Triamterene 37.5MG/Hctz 25MG Capsule 1 CAP PO (09:44)
[2022-01-24] MEDS: DULoxetine Hcl 60 MG Capsule PO (09:44)
[2022-01-24] MEDS: Aspirin 81 MG TAB.CHEW PO (09:44)
[2022-01-24] MEDS: Fluticasone 0.05% 1 SPRAY NASAL.SRY NASAL (09:45)
[2022-01-24] MEDS: Nystatin Powder 15gm Bottle 1 APPLIC TOPICAL ×2 (09:45→21:29)
[2022-01-24] MEDS: amLODIPine 5 MG Tablet PO (09:46)
[2022-01-24] MEDS: Pravastatin 40 MG Tablet PO (09:47)
[2022-01-24] MEDS: APIXABAN 2.5 MG TABLET PO ×2 (09:49→21:29)
--- NOTE | 2022-01-24 10:57 | PCM.PN.CARD ---
Subjective Subjective Patient seen and evaluated. Appears to be doing well at this morning. Objective Data Vital Signs: Vital Signs Temp Pulse Resp BP Pulse Ox O2 Del Method 98.3 F 89 18 139/85 H 92 Room Air 01/24/22 09:42 01/24/22 09:42 01/24/22 09:42 01/24/22 09:42 01/24/22 09:42 01/24/22 09:42 Oxygen Delivery Method Room Air Weight: 238 lb 12.17 oz Body Mass Index (BMI) 44.8 Intake & Output: Intake and Output for Last 24 Hours 01/22/22 01/23/22 01/24/22 23:59 23:59 23:59 Intake Total 2601.67 / 2601.67 Output Total 150 / 150 400 / 400 Balance 2451.67 / 2451.67 -400 / -400 Lab / Micro Data Result Diagrams: 01/24/22 08:52 01/24/22 08:52 Labs: Laboratory Results - last 24 hr 01/23/22 11:55: POC Glucose 221 H 01/23/22 17:17: POC Glucose 195 H 01/23/22 21:52: POC Glucose 151 H 01/24/22 06:44: POC Glucose 151 H 01/24/22 08:52: WBC 10.0, RBC 4.68, Hgb 13.5, Hct 41.3, MCV 88.2, MCH 28.8, MCHC 32.7, RDW Std Deviation 42.5, RDW Coeff of Alondra 13.2, Plt Count 322, MPV 9.0, Immature Gran % (Auto) 0.500, Neut % (Auto) 70.7 H, Lymph % (Auto) 20.7, [place] % (Auto) 6.3, Eos % (Auto) 1.4, Baso % (Auto) 0.4, Absolute Neuts (auto) 7.1, Absolute Lymphs (auto) 2.07, Nucleated RBC % 0 01/24/22 08:52: Sodium 138, Potassium 3.3 L, Chloride 100, Carbon Dioxide 30.0, Anion Gap 8, BUN 7, Creatinine 0.52 L, Estim Creat Clear Calc 31.94, Est GFR (MDRD) Af Amer 144, Est GFR (MDRD) Non-Af 119, BUN/Creatinine Ratio 13.5, Glucose 142 H, Calcium 8.9, Phosphorus 2.8, Magnesium 1.7, Triglycerides 148, Cholesterol 118, LDL Cholesterol 36, VLDL Cholesterol 30, HDL Cholesterol 52 Micro: Microbiology 01/23/22 06:35 Urine, Catheterized Urine 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 Rhythm Strip: Sinus Rhythm Rate: 98 Ectopy: PVC(s) Cardiology Labs/Tests 01/24/22 08:52: WBC 10.0, RBC 4.68, Hgb 13.5, Hct 41.3, MCV 88.2, MCH 28.8, MCHC 32.7, Plt Count 322, MPV 9.0, Immature Gran % (Auto) 0.500, Neut % (Auto) 70.7 H, Lymph % (Auto) 20.7, [place] % (Auto) 6.3, Eos % (Auto) 1.4, Baso % (Auto) 0.4, Absolute Neuts (auto) 7.1, Nucleated RBC % 0 01/24/22 08:52: Sodium 138, Potassium 3.3 L, Chloride 100, Carbon Dioxide 30.0, Anion Gap 8, BUN 7, Creatinine 0.52 L, Est GFR (MDRD) Af Amer 144, Est GFR (MDRD) Non-Af 119, BUN/Creatinine Ratio 13.5, Glucose 142 H, Calcium 8.9, Phosphorus 2.8, Magnesium 1.7, Triglycerides 148, Cholesterol 118, LDL Cholesterol 36, VLDL Cholesterol 30, HDL Cholesterol 52 Rhythm: EKG: ECHO: Stress Test: Cardiac Cath: PCI: CT Surgery: Holter monitor: EPS: PPM: CXR: Chest CT Scan: Radiography Diagnostic Testing: Radiology Impression Brain MRI 01/23/22 07:22 IMPRESSION: 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 Chronic involutional and white matter changes. 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 Chronic involutional and white matter changes. N.B. : Jessica St RN, confirmed on 01/23/2022 16:39:49 (ET) that the healthcare facility has received the radiology report. Electronically Signed: Snehal Chu MD at 16:24 EDT , Physical Exam Const alert, oriented x3 and no apparent distress General Appearance: cooperative HEENT hearing grossly normal bilaterally Head and Scalp: atraumatic Eyes EOMs intact bilaterally Neck General: normal visual inspection Chest inspection of chest normal and palpation of chest normal Resp normal respiratory effort Auscultation: clear to auscultation bilaterally Cardio regular rate, regular rhythm, S1 normal heart sound and S2 normal heart sound Jugular Venous Distention: JVD GI normal to inspection, nondistended, normoactive bowel sounds Extremity normal capillary refill and no pedal edema Peripheral Pulses: Yes pulses 2+ throughout and femoral pulses present Skin no rashes or lesions noted Neuro oriented x3 and CN's II-XII intact bilaterally Psych Appearance: grossly normal and appropriate Assessment & Plan Assessment/Plan (1) Paroxysmal atrial fibrillation: PLAN: Patient was noted to have asymptomatic paroxysmal atrial fibrillation. Her ventricular response rate appears to be controlled. She does have preserved left ventricular systolic function. Will recommend anticoagulation at this time based on discussion with hospitalist. Thank you for allowing me to participate in the care of your patient. Please don't hesitate to call if any issues arise. (2) HTN (hypertension): PLAN: Continue amlodipine at this time.
[2022-01-24 11:55] LABS: Bedside Glucose 298 mg/dL (74-106)
--- NOTE | 2022-01-24 12:09 | CM.ED ---
SW met with patient and provided her with list of in network providers for patient's insurance. Patient said that she would like to go to [facility]. Patient said that she was there 13 years ago. SW asked if there was a second choice or alternative and patient said no. SW will make referral to [facility] using [facility]. Kerri JONES
--- NOTE | 2022-01-24 14:56 | CASEMGMT ---
[place] [facility] [facility]. Mann Myers RN CM
[2022-01-24 17:00] LABS: Bedside Glucose 136 mg/dL (74-106)
[2022-01-24] MEDS: Cephalexin 500 MG Capsule PO (21:29)
[2022-01-24] MEDS: Acetaminophen 325 MG Tablet 650 MG PO (21:31)
[2022-01-24 22:01] LABS: Bedside Glucose 212 mg/dL (74-106)
[2022-01-25] VITALS (7 sets, daily range): BP systolic 143–149; BP diastolic 83–90; PULSE 70–111; RESP 16–20; TEMP 35.8–36.8; O2SAT 93–99
[2022-01-25 06:45] LABS: Absolute Lymphocyte Count 2.04 X10^3/uL (0.83-4.51); Absolute Neutrophil Count 4.7 X10^3/uL (2.0-7.7); Basophil# 0.05 X10^3/uL; Basophil% 0.7 % (0-1); Eosinophil# 0.11 X10^3/uL; Eosinophils% 1.5 % (0-5); Hematocrit 42.1 % (37-47); Hemoglobin 13.8 g/dL (12.0-15.0); Lymphocyte # 2.04 X10^3/ul (0.83-4.51); Lymphocyte % 27.5 % (19-41); Mean Corp Hgb Conc 32.8 g/dL (32-36); Mean Corpuscular Hgb 28.9 pg (27.0-32.0); Mean Corpuscular Volume 88.1 fL (81-99); Mean Platelet Vol. 9.1 fl (6.2-12.0); Monocyte# 0.51 X10^3/uL; Monocyte% 6.9 % (0-10); NRBC Flagged by Analyzer 0 % (0-5); Neutrophil # 4.69 X10^3/uL (2.7-7.7); Platelet Count 349 K/mm3 (150-450); RBC Distribution Width SD 42.3 fl (35.1-43.9); Red Blood Count 4.78 M/mm3 (4.2-5.4); White Blood Count 7.4 K/mm3 (4.4-11.0)
[2022-01-25 07:00] LABS: Bedside Glucose 139 mg/dL (74-106)
[2022-01-25 07:08] LABS: Anion Gap 8 (5-15); BUN 6 mg/dL (7-18); BUN/Creat Ratio 10.8 RATIO (10-20); Calcium,Total 8.9 mg/dL (8.5-10.1); Chloride 98 mmol/L (98-107); Creatinine, Serum 0.56 mg/dL (0.55-1.02); EST Glomerular Filtration Rate 110 mL/min (>60); Est Glom Filt Rate - Afr Amer 133 mL/min (>60); Estimated Creatinine Clearance 31.94 ml/min; Glucose 135 mg/dL (74-106); Potassium 3.4 mmol/L (3.5-5.1); Sodium Level 136 mmol/L (136-145)
[2022-01-25 08:46] LABS: Bedside Glucose 152 mg/dL (74-106)
--- NOTE | 2022-01-25 09:13 | PCM.DC.SUM ---
Providers Date of Admission: 01/23/22 Date of Discharge: 01/25/22 Primary Care Physician: Dr. Radha Betancourt MD Consultations 01/23/22 10:58 Consult: Cardiology Routine Consulting Provider: Preet Dueñas Reason for Consult: afib EMERGENT Consult: No MD Notified: Yes Date Notified: 01/23/22 Time Notified: 10:58 Method of Notification: Text Reason For Visit: TONGUE SWELLING Diagnosis Discharge Diagnosis (1) Paroxysmal atrial fibrillation: Status: Acute Code(s): I48.0 - Paroxysmal atrial fibrillation (2) HTN (hypertension): Status: Chronic Code(s): I10 - Essential (primary) hypertension Plan Patient is an 86-year-old lady presented with multiple complaints including sensation of tongue swelling, as well as right visual disturbance. Admitted to monitored bed for further management 1. Acute embolic CVA ? Patient presented with intermittent visual disturbance As part of patient's evaluation patient was placed on continuous telemetry monitoring, every 4 neurochecks 2D echo and ordered MRI of the brain to rule out CVA. 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 Patient is already on antiplatelet therapy with pravastatin did continue. 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 Chronic involutional and white matter changes. Patient was also found to have A. fib on the monitor. Did discuss findings of MRI as well as her A. fib and implications for treatment. Discussed the pros and cons of systemic anticoagulation given her remote history of cerebellar hemorrhage. Patient opted to go with systemic anticoagulation. Subsequently started patient on Eliquis 2.5 mg twice daily. 2. Suspected angioedema ? Patient is on lisinopril, this was discontinued patient did receive Tranexamic Acid in the ED ? 01/24/2022 lisinopril discontinued no recurrence of symptoms 3. Acute cystitis ? Patient has history of recurrent UTIs patient is on nitrofurantoin held on admission started on Rocephin cultures sent ? 01/24/2022; urine cultures pending ? 01/25/2022 cultures came back positive for Klebsiella pneumonia patient discharged on cefdinir 4. Hypertension - Blood pressure controlled, home medications assess for lisinopril continued with dose adjustment as needed 5. Paroxysmal A. fib ? Patient was being monitored continuously on telemetry was found to have intermittent irregular heartbeat. 12-lead EKG ordered in addition to echo with consultation placed to cardiology. 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 Chronic involutional and white matter changes. Patient was also found to have A. fib on the monitor. Did discuss findings of MRI as well as her A. fib and implications for treatment. Discussed the pros and cons of systemic anticoagulation given her remote history of cerebellar hemorrhage. Patient opted to go with systemic anticoagulation. Subsequently started patient on Eliquis 2.5 mg twice daily. 6. Dyslipidemia -Patient is on statin therapy, continued at home dose 7. Diabetes mellitus type II -patient's oral hypoglycemics held. Placed on long acting insulin, Accu-Cheks a.c. and at bedtime and covered with sliding scale insulin 8. Class III obesity with BMI of 43.7 ? Weight loss advised 9. DVT prophylaxis ? Eliquis Medications at Discharge Home Medications amlodipine 5 mg tablet 5 mg DAILY Blood pressure 01/23/22 duloxetine 60 mg capsule,delayed release 60 mg PO DAILY mood 01/23/22 fluticasone propionate 50 mcg/actuation nasal spray,suspension 1 spray intranasal DAILY PRN Allergic Symptoms 01/23/22 nitrofurantoin macrocrystal 100 mg capsule 100 mg DAILY prevent UTI 01/23/22 oxybutynin chloride 10 mg tablet,extended release 24 hr 10 mg PO DAILY bladder 01/23/22 pravastatin 40 mg tablet 40 mg DAILY cholesterol 01/23/22 sitagliptin 50 mg-metformin 500 mg tablet (Janumet) 1 tab BID blood sugar 01/23/22 triamterene 37.5 mg-hydrochlorothiazide 25 mg capsule 1 cap DAILY diuretic 01/23/22 apixaban 2.5 mg tablet (Eliquis) 2.5 mg PO BID #60 tabs 01/25/22 cefdinir 300 mg capsule 300 mg PO BID #10 caps 01/25/22 Hospital Course Summary of Care Provided Minutes Spent on Discharge: 35 Physical Exam Narrative GENERAL: cooperative HEENT: Atraumatic; no tongue swelling appreciated EYES; Anicteric, Normal Conjunctiva NECK; supple, normal thyroid, RESPIRATORY: Diminished to auscultation CARDIOVASCULAR: Regular S1 S2, GI: soft, normoactive bowel sounds, : No Renal angle tenderness; EXTREMITIES: No edema, no clubbing, MUSCULOSKELETAL: no muscle wasting NEURO: Awake; no lateralizing signs. SKIN: No Rash PSYCH; Flat affect Weight / BMI Weight Weight: 108.3 kg Body Mass Index (BMI) 44.8 ABG / Lab / Microbiology Data Result Diagrams: 01/25/22 05:35 01/25/22 05:35 Laboratory: Laboratory Results - last 24 hr 01/24/22 08:52: WBC 10.0, RBC 4.68, Hgb 13.5, Hct 41.3, MCV 88.2, MCH 28.8, MCHC 32.7, RDW Std Deviation 42.5, RDW Coeff of Alondra 13.2, Plt Count 322, MPV 9.0, Immature Gran % (Auto) 0.500, Neut % (Auto) 70.7 H, Lymph % (Auto) 20.7, [place] % (Auto) 6.3, Eos % (Auto) 1.4, Baso % (Auto) 0.4, Absolute Neuts (auto) 7.1, Absolute Lymphs (auto) 2.07, Nucleated RBC % 0 01/24/22 08:52: Sodium 138, Potassium 3.3 L, Chloride 100, Carbon Dioxide 30.0, Anion Gap 8, BUN 7, Creatinine 0.52 L, Estim Creat Clear Calc 31.94, Est GFR (MDRD) Af Amer 144, Est GFR (MDRD) Non-Af 119, BUN/Creatinine Ratio 13.5, Glucose 142 H, Calcium 8.9, Phosphorus 2.8, Magnesium 1.7, Triglycerides 148, Cholesterol 118, LDL Cholesterol 36, VLDL Cholesterol 30, HDL Cholesterol 52 01/24/22 11:23: POC Glucose 298 H 01/24/22 16:38: POC Glucose 136 H 01/24/22 21:25: POC Glucose 212 H 01/25/22 05:35: WBC 7.4, RBC 4.78, Hgb 13.8, Hct 42.1, MCV 88.1, MCH 28.9, MCHC 32.8, RDW Std Deviation 42.3, RDW Coeff of Alondra 13.0, Plt Count 349, MPV 9.1, Immature Gran % (Auto) 0.400, Neut % (Auto) 63.0, Lymph % (Auto) 27.5, [place] % (Auto) 6.9, Eos % (Auto) 1.5, Baso % (Auto) 0.7, Absolute Neuts (auto) 4.7, Absolute Lymphs (auto) 2.04, Nucleated RBC % 0 01/25/22 05:35: Sodium 136, Potassium 3.4 L, Chloride 98, Carbon Dioxide 30.0, Anion Gap 8, BUN 6 L, Creatinine 0.56, Estim Creat Clear Calc 31.94, Est GFR (MDRD) Af Amer 133, Est GFR (MDRD) Non-Af 110, BUN/Creatinine Ratio 10.8, Glucose 135 H, Calcium 8.9 01/25/22 06:31: POC Glucose 139 H 01/25/22 08:11: POC Glucose 152 H Microbiology: Microbiology 01/23/22 06:35 Urine, Catheterized Urine Culture - Final Klebsiella pneumoniae sp pneum D/C Instructions Discharge Diet: No restrictions Discharge Activity: Return to Normal Activity Call your doctor if you observe: Fever of 101 or Higher, Shortness of breath, Fainting spells and Chest pain Meaningful Use Info Meaningful Use Diagnoses (Choose all that apply): Ischemic CVA CVA Therapy Assessed for PT,OT and/or ST?: Yes Ischemic Stroke Antithrombotic order at d/c?: Yes Dx of Atrial fib/flutter?: Yes Anticoagulant at discharge?: Yes Statins at discharge?: Yes Primary Dx Acute Ischemic CVA?: Yes IV tPA ordered during stay?: No Reason IV t-PA not ordered: Treatment not Indicated Discharge Plan Admission Admit Date/Time: 01/23/22 17:35 Attending Provider: Frank Guerra Primary Care Provider: Radha Betancourt Consulting Providers: Preet Dueñas Discharge Orders/Prescriptions Prescriptions: New Eliquis 2.5 mg Tablet 2.5 mg PO BID Qty: 60 0RF cefdinir 300 mg capsule 300 mg PO BID Qty: 10 0RF Continued oxybutynin chloride 10 mg tablet extended release 24hr 10 mg PO DAILY Label Comments: take 1 tablet by mouth once daily pravastatin 40 mg tablet 40 mg DAILY Label Comments: Take 1 tablet by mouth every night as directed amlodipine 5 mg tablet 5 mg DAILY Label Comments: Take 1 tablet by mouth once a day as directed triamterene-hydrochlorothiazid 37.5-25 mg capsule 1 cap DAILY Label Comments: Take 1 capsule by mouth once a day nitrofurantoin macrocrystal 100 mg capsule 100 mg DAILY fluticasone propionate 50 mcg/actuation spray,suspension 1 spray INTRANASAL DAILY PRN (Reason: Allergic Symptoms) Rx Instructions: EACH NOSTRIL duloxetine 60 mg capsule,delayed release(DR/EC) 60 mg PO DAILY Label Comments: take 1 capsule by mouth once daily as directed Janumet 50-500 mg tablet 1 tab BID Label Comments: Take 1 tablet by mouth twice a day with meals Discontinued lisinopril 10 mg Tablet 10 mg PO DAILY Referrals / Follow Up: Radha Betancourt MD [Primary Care Provider] - In 1 Week [facility] Doctor,Out of [Non-Staff] - Disposition Disposition (needs filled in before D/C Order can be placed): Home, Self Care Charges/Coding Visit Charges Inpatient E&M: 11506 Subs Hosp L3
[2022-01-25] MEDS: Nystatin Powder 15gm Bottle 1 APPLIC TOPICAL (10:19)
[2022-01-25] MEDS: Fluticasone 0.05% 1 SPRAY NASAL.SRY NASAL (10:20)
[2022-01-25] MEDS: APIXABAN 2.5 MG TABLET PO ×2 (10:21→13:41)
[2022-01-25] MEDS: Pravastatin 40 MG Tablet PO (10:21)
[2022-01-25] MEDS: Cephalexin 500 MG Capsule PO (10:21)
[2022-01-25] MEDS: Tolterodine Tartrate 2 MG CAP.SA PO (10:21)
[2022-01-25] MEDS: amLODIPine 5 MG Tablet PO (10:21)
[2022-01-25] MEDS: Triamterene 37.5MG/Hctz 25MG Capsule 1 CAP PO (10:21)
[2022-01-25] MEDS: DULoxetine Hcl 60 MG Capsule PO (10:21)
[2022-01-25] MEDS: Aspirin 81 MG TAB.CHEW PO (10:21)
--- NOTE | 2022-01-25 11:40 | NURSING ---
This RN spoke with patient's daughter, Gisel and she was under the understanding that patient would be coming home at discharge. Informed daughter that per notes, patient had discussed going to [facility] at discharge and a referral was sent. Will follow up with patient's primary RN, Roopa and patient on discharge plans and will call daughter Gisel back with update.
--- NOTE | 2022-01-25 12:00 | NURSING ---
This RN spoke to pt about discharge plans and pt stated she wants to go home and not to alter care of [facility].
--- NOTE | 2022-01-25 12:05 | NURSING ---
This RN called Gisel and gave update that patient is requesting to go home at discharge. Transport was set up for 1400. RN will call Gisel and give discharge instructions over the phone. Gisel thankful for phone call.
[2022-01-25] MEDS: Insulin Lispro 100 UNIT/ML INSULN.PEN SC (12:21)
[2022-01-25 12:45] LABS: Bedside Glucose 243 mg/dL (74-106)
--- NOTE | 2022-01-25 12:58 | PCM.PN.HOSP ---
Subjective Subjective Patient seen had a relatively uneventful night. Plan is for patient to be assessed for possible discharge Objective Data Objective Data Vital Signs: Vital Signs Temp Pulse Resp BP Pulse Ox O2 Del Method 97.7 F L 111 H 16 149/89 H 99 Room Air 01/25/22 09:30 01/25/22 09:30 01/25/22 09:30 01/25/22 09:30 01/25/22 09:30 01/25/22 09:30 Oxygen Delivery Method Room Air Weight: 108.3 kg Body Mass Index (BMI) 44.8 Intake & Output: Intake and Output for Last 24 Hours 01/23/22 01/24/22 01/25/22 23:59 23:59 23:59 Intake Total 2601.67 / 2601.67 900 / 1140 600 / 600 Output Total 150 / 150 600 / 600 550 / 550 Balance 2451.67 / 2451.67 300 / 540 50 / 50 Lab / Micro Data Result Diagrams: 01/25/22 05:35 01/25/22 05:35 Labs: Laboratory Results - last 24 hr 01/24/22 16:38: POC Glucose 136 H 01/24/22 21:25: POC Glucose 212 H 01/25/22 05:35: WBC 7.4, RBC 4.78, Hgb 13.8, Hct 42.1, MCV 88.1, MCH 28.9, MCHC 32.8, RDW Std Deviation 42.3, RDW Coeff of Alondra 13.0, Plt Count 349, MPV 9.1, Immature Gran % (Auto) 0.400, Neut % (Auto) 63.0, Lymph % (Auto) 27.5, [place] % (Auto) 6.9, Eos % (Auto) 1.5, Baso % (Auto) 0.7, Absolute Neuts (auto) 4.7, Absolute Lymphs (auto) 2.04, Nucleated RBC % 0 01/25/22 05:35: Sodium 136, Potassium 3.4 L, Chloride 98, Carbon Dioxide 30.0, Anion Gap 8, BUN 6 L, Creatinine 0.56, Estim Creat Clear Calc 31.94, Est GFR (MDRD) Af Amer 133, Est GFR (MDRD) Non-Af 110, BUN/Creatinine Ratio 10.8, Glucose 135 H, Calcium 8.9 01/25/22 06:31: POC Glucose 139 H 01/25/22 08:11: POC Glucose 152 H 01/25/22 12:18: POC Glucose 243 H Micro: Microbiology 01/23/22 06:35 Urine, Catheterized Urine Culture - Final Klebsiella pneumoniae sp pneum Rhythm Strip Rhythm Strip: Sinus Rhythm Rate: 98 Ectopy: PVC(s) Physical Exam Narrative GENERAL: cooperative HEENT: Atraumatic; no tongue swelling appreciated EYES; Anicteric, Normal Conjunctiva NECK; supple, normal thyroid, RESPIRATORY: Diminished to auscultation CARDIOVASCULAR: Regular S1 S2, GI: soft, normoactive bowel sounds, : No Renal angle tenderness; EXTREMITIES: No edema, no clubbing, MUSCULOSKELETAL: no muscle wasting NEURO: Awake; no lateralizing signs. SKIN: No Rash PSYCH; Flat affect Assessment & Plan Assessment/Plan (1) Paroxysmal atrial fibrillation: (2) HTN (hypertension): PLAN: Plan Patient is an 86-year-old lady presented with multiple complaints including sensation of tongue swelling, as well as right visual disturbance. Admitted to monitored bed for further management 1. Acute embolic CVA ? Patient presented with intermittent visual disturbance As part of patient's evaluation patient was placed on continuous telemetry monitoring, every 4 neurochecks 2D echo and ordered MRI of the brain to rule out CVA. 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 Patient is already on antiplatelet therapy with pravastatin did continue. 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 Chronic involutional and white matter changes. Patient was also found to have A. fib on the monitor. Did discuss findings of MRI as well as her A. fib and implications for treatment. Discussed the pros and cons of systemic anticoagulation given her remote history of cerebellar hemorrhage. Patient opted to go with systemic anticoagulation. Subsequently started patient on Eliquis 2.5 mg twice daily. 2. Suspected angioedema ? Patient is on lisinopril, this was discontinued patient did receive Tranexamic Acid in the ED ? 01/24/2022 lisinopril discontinued no recurrence of symptoms 3. Acute cystitis ? Patient has history of recurrent UTIs patient is on nitrofurantoin held on admission started on Rocephin cultures sent ? 01/24/2022; urine cultures pending ? 01/25/2022 cultures came back positive for Klebsiella pneumonia patient discharged on cefdinir 4. Hypertension - Blood pressure controlled, home medications assess for lisinopril continued with dose adjustment as needed 5. Paroxysmal A. fib ? Patient was being monitored continuously on telemetry was found to have intermittent irregular heartbeat. 12-lead EKG ordered in addition to echo with consultation placed to cardiology. 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 Chronic involutional and white matter changes. Patient was also found to have A. fib on the monitor. Did discuss findings of MRI as well as her A. fib and implications for treatment. Discussed the pros and cons of systemic anticoagulation given her remote history of cerebellar hemorrhage. Patient opted to go with systemic anticoagulation. Subsequently started patient on Eliquis 2.5 mg twice daily. 6. Dyslipidemia -Patient is on statin therapy, continued at home dose 7. Diabetes mellitus type II -patient's oral hypoglycemics held. Placed on long acting insulin, Accu-Cheks a.c. and at bedtime and covered with sliding scale insulin 8. Class III obesity with BMI of 43.7 ? Weight loss advised 9. DVT prophylaxis ? Eliquadonis Charges/Coding Visit Charges Inpatient E&M: 88782 Subs Hosp L2
--- NOTE | 2022-01-25 15:32 | NURSING ---
Reviewed charting with Toribio Salcedo RN
== END 2022-01-25 14:28 | disposition home or self-care (01) | DRG 64 ==
LOC: ED 05:55 → PCU 07:36
PROVIDERS: Admitting Provider Internal Medicine; Emergency Provider Emergency Medicine; PCP Family Medicine; Visit Provider Internal Medicine
DX: I63.442 Cerebral infarction due to embolism of left cerebellar artery (principal); J15.0 Pneumonia due to Klebsiella pneumoniae; N30.00 Acute cystitis without hematuria; Z68.41 Body mass index [BMI] 40.0-44.9, adult; E11.9 Type 2 diabetes mellitus without complications; E78.5 Hyperlipidemia, unspecified; B96.89 Other specified bacterial agents as the cause of diseases classified elsewhere; E66.9 Obesity, unspecified; I48.0 Paroxysmal atrial fibrillation; I10 Essential (primary) hypertension; Z51.5 Encounter for palliative care; Z79.84 Long term (current) use of oral hypoglycemic drugs; Z79.02 Long term (current) use of antithrombotics/antiplatelets; Z79.82 Long term (current) use of aspirin; Z66 Do not resuscitate; Z86.73 Personal history of transient ischemic attack (TIA), and cerebral infarction without residual deficits; T78.3XXA Angioneurotic edema, initial encounter
CPT/HCPCS: 36415; 70450; 70496; 70498; 70551; 71045; 80048; 80053; 80061; 81001; 82962; 83735; 84100; 84484; 85025; 85610; 85730; 87077; 87086; 87088; 87186; 92507; 92610; 93005; 93306; 94762; 97110; 97162; 97166; 97530; 97802; 99285; J7030; J7050; Q9957; Q9967; A4216